=== PATIENT | female | born 1965 | race Caucasian/White ===

== ENCOUNTER 2017-04-07 03:49 | Emergency (ER) | payer OTHER ==
[2017-04-07 03:57] VITALS: O2SAT 95
[2017-04-07] MEDS ORDERED: NS 1,000 ML IV ONE (04:22)
[2017-04-07] MEDS ORDERED: HYDROmorphONE/DILAUDID 1 MG/ML SYR IVP ONE (04:28)
[2017-04-07] MEDS ORDERED: methylPREDNISolone SOD SUCC 125 MG/2 ML VIAL IVP ONE (04:29)
--- NOTE | 2017-04-07 04:32 | EDPHY ---
H & P Stated Complaint: UC flare up Time Seen by Provider: 04/07/17 04:21 HPI/ROS: HPI The patient presents with 1 day of left-sided lower quadrant abdominal pain which is achy in nature and constant and feels like her prior flares of ulcerative colitis. She has had 3 days of diarrhea which is more loose than usual. She says her stools are always bloody, appear more bloody over the last 1 day. She has not had a fever. She is followed by Dr. Lyles of Gastroenterology and has plans for a total colectomy per her report by Dr. Enamorado later this month. She says this feels like her usual flare, though is more mild. REVIEW OF SYSTEMS Constitutional: No fever, no chills. Eyes: No discharge. ENT: No sore throat. Cardiovascular: No chest pain, no palpitations. Respiratory: No cough, no shortness of breath. Gastrointestinal: Positive for abdominal pain Genitourinary: No hematuria. Musculoskeletal: No back pain. Skin: No rashes. Neurological: No headache. PMHx: Ulcerative colitis, pancreatitis Soc Hx: Housed PHYSICAL General Appearance: Alert, no distress Eyes: Pupils equal and round no pallor or injection ENT, Mouth: Mucous membranes moist Respiratory: There are no retractions, lungs are clear to auscultation Cardiovascular: Regular rate and rhythm Gastrointestinal: Abdomen is soft and tender in the LLQ, no masses, bowel sounds normal Neurological: A&O, moves all extremities Skin: Warm and dry, no rashes Musculoskeletal: Neck is supple non tender Extremities: symmetrical, full range of motion Psychiatric: Patient is oriented X 3, there is no agitation Source: Patient, Old records Exam Limitations: No limitations - Personal History LMP (Females 10-55): Hysterectomy Current Tetanus/Diphtheria Vaccine: Yes Current Tetanus Diphtheria and Acellular Pertussis (TDAP): Yes Tetanus Vaccine Date: ~ 3 YEARS AGO - Medical/Surgical History Hx Asthma: No Hx Chronic Respiratory Disease: No Hx Diabetes: No Hx Cardiac Disease: No Hx Renal Disease: No Hx Cirrhosis: No Hx Alcoholism: No Hx HIV/AIDS: No Hx Splenectomy or Spleen Trauma: No Other PMH: PMH: OVARIAN CYSTS, ULCERATIVE, rib fx, pneumoCOLITIS,HTN,HYPOTHYROID ,PANCREATITIS. PSH: HYST - Social History Smoking Status: Former smoker Constitutional: Initial Vital Signs Temperature (C) 36.6 C 07/19/17 03:55 Heart Rate 95 04/07/17 03:55 Respiratory Rate 18 04/07/17 03:55 Blood Pressure 116/81 H 04/07/17 03:55 O2 Sat (%) 95 04/07/17 03:55 O2 Delivery Mode Room Air Allergies/Adverse Reactions: nausea medications Allergy (Severe, Uncoded 03/24/16 06:40) Other-Enter Comments Home Medications: Medication Instructions Recorded Levothyroxine [Synthroid 75 mcg 75 mcg PO DAILY06 09/24/13 (*)] Lisinopril [Zestril 5 mg (*)] 5 mg PO DAILY 09/24/13 Estradiol [Vivelle-Dot 0.1MG (*)] 0.1 mg TD MO@08 03/04/16 oxyCODONE/APAP 5/325 [Percocet 1 - 2 tab PO Q4 PRN #30 tab 03/25/16 5/325 (*)] Medical Decision Making Differential Diagnosis: This is a 51-year-old female with history of ulcerative colitis who presents from home with 1 day of left lower quadrant abdominal pain associated with bloody diarrhea. Feels like her usual colitis flare. Differential diagnosis includes ulcerative colitis, diverticulitis, less likely ischemic colitis. Labs were relatively unremarkable in the emergency room. The patient received fluids, pain medication, Solu-Medrol as this is what usually helps her. She improved immediately. She will be discharged home. 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 - Data Points Laboratory Results: Laboratory Results 04/07/17 04:17 04/07/17 04:17 04/07/17 04/07/17 04:17 04:17 WBC 7.75 10^3/uL 10^3/uL (3.80-9.50) RBC 4.01 10^6/uL L 10^6/uL (4.18-5.33) Hgb 10.9 g/dL L g/dL (12.6-16.3) Hct 34.3 % L % (38.0-47.0) MCV 85.5 fL fL (81.5-99.8) MCH 27.2 pg L pg (27.9-34.1) MCHC 31.8 g/dL L g/dL (32.4-36.7) RDW 16.5 % H % (11.5-15.2) Plt Count 409 10^3/uL H 10^3/uL (150-400) MPV 10.0 fL fL (8.7-11.7) Neut % (Auto) 56.3 % % (39.3-74.2) Lymph % (Auto) 30.5 % % (15.0-45.0) [place] % (Auto) 9.0 % % (4.5-13.0) Eos % (Auto) 3.2 % % (0.6-7.6) Baso % (Auto) 0.9 % % (0.3-1.7) Nucleat RBC Rel Count 0.0 % % (0.0-0.2) Absolute Neuts (auto) 4.36 10^3/uL 10^3/uL (1.70-6.50) Absolute Lymphs (auto) 2.36 10^3/uL 10^3/uL (1.00-3.00) Absolute Monos (auto) 0.70 10^3/uL 10^3/uL (0.30-0.80) Absolute Eos (auto) 0.25 10^3/uL 10^3/uL (0.03-0.40) Absolute Basos (auto) 0.07 10^3/uL 10^3/uL (0.02-0.10) Absolute Nucleated RBC 0.00 10^3/uL 10^3/uL (0-0.01) Immature Gran % 0.1 % % (0.0-1.1) Immature Gran # 0.01 10^3/uL 10^3/uL (0.00-0.10) Sodium 142 mEq/L mEq/L (134-144) Potassium 4.7 mEq/L mEq/L (3.5-5.2) Chloride 111 mEq/L H mEq/L (97-110) Carbon Dioxide 21 mEq/l L mEq/l (22-31) Anion Gap 10 mEq/L mEq/L (8-16) BUN 26 mg/dL H mg/dL (7-23) Creatinine 0.8 mg/dL mg/dL (0.6-1.0) Estimated GFR > 60 Glucose 100 mg/dL mg/dL (70-100) Calcium 9.5 mg/dL mg/dL (8.5-10.4) Total Bilirubin 0.5 mg/dL mg/dL (0.1-1.4) Conjugated Bilirubin 0.4 mg/dL mg/dL (0.0-0.5) Unconjugated Bilirubin 0.1 mg/dL mg/dL (0.0-1.1) AST 28 IU/L IU/L (14-46) ALT 24 IU/L IU/L (9-52) Alkaline Phosphatase 58 IU/L IU/L (38-126) Total Protein 6.5 g/dL g/dL (6.3-8.2) Albumin 3.5 g/dL g/dL (3.5-5.0) Lipase 116.0 IU/L IU/L (23-300) Medications Given: Discontinued Medications Hydrocodone Bitart/Acetaminophen ([place] 5/325mg Prepack#6) 1 btl TAKEHOME EDNOW ONE Stop: 04/07/17 05:58 Last Admin: 04/07/17 06:02 Dose: 1 btl Hydromorphone HCl (Dilaudid) 0.5 mg IVP EDNOW ONE Stop: 04/07/17 04:29 Last Admin: 04/07/17 04:35 Dose: 0.5 mg Sodium Chloride (Ns) 1,000 mls @ 0 mls/hr IV ONCE ONE; Wide Open PRN Reason: Protocol Stop: 04/07/17 04:23 Last Admin: 04/07/17 04:34 Dose: 1,000 mls Methylprednisolone Sodium Succinate (Solu-Medrol) 125 mg IVP EDNOW ONE Stop: 04/07/17 04:30 Last Admin: 04/07/17 04:35 Dose: 125 mg Departure - Departure Disposition: Home, Routine, Self-Care Clinical Impression: Abdominal pain, left lower quadrant Ulcerative colitis Qualifiers: Ulcerative colitis location: unspecified ulcerative colitis location Digestive disease complication type: unspecified complication Qualified Code(s): K51.919 - Ulcerative colitis, unspecified with unspecified complications Condition: Good Instructions: Hydrocodone/Acetaminophen (By mouth), Ulcerative Colitis (ED) Additional Instructions: Please call your slitter creaser slotter helper today to arrange for follow-up. Return to the ER if your worse in any way. Referrals: Pramod Lyles MD [[facility] Primary Care Provider] - As per Instructions
[2017-04-07 04:35] LABS: % IMMATURE GRANULYOCYTES 0.1 % (0.0-1.1); ABSOLUTE IMMATURE GRANULOCYTES 0.01 10^3/uL (0.00-0.10); ADD DIFF? NO; ADD MORPH? NO; ADD SCAN? NO; ATYPICAL LYMPHOCYTE FLAG 10 (0-99); FRAGMENT RBC FLAG 30 (0-99); HEMATOCRIT 34.3 % (38.0-47.0); HEMOGLOBIN 10.9 g/dL (12.6-16.3); LEFT SHIFT FLG 0 (0-99); LIPEMIA HEMOLYSIS FLAG 80 (0-99); MEAN CELL HEMOGLOBIN 27.2 pg (27.9-34.1); MEAN CELL HEMOGLOBIN CONCENTR. 31.8 g/dL (32.4-36.7); MEAN CELL VOLUME 85.5 fL (81.5-99.8); PLATELET CLUMPS FLAG 10 (0-99); PLATELET COUNT 409 10^3/uL (150-400); RED BLOOD CELL COUNT 4.01 10^6/uL (4.18-5.33); RED CELL DISTRIBUTION WIDTH 16.5 % (11.5-15.2)
[2017-04-07 04:39] LABS: ALANINE AMINOTRANSFERASE 24 IU/L (9-52); ALBUMIN 3.5 g/dL (3.5-5.0); ALKALINE PHOSPHATASE 58 IU/L (38-126); ANION GAP 10 mEq/L (8-16); ASPARTATE AMINOTRANSFERASE 28 IU/L (14-46); BILIRUBIN,TOTAL 0.5 mg/dL (0.1-1.4); BILIRUBIN-CONJUGATED 0.4 mg/dL (0.0-0.5); BILIRUBIN-UNCONJUGATED 0.1 mg/dL (0.0-1.1); CALCIUM 9.5 mg/dL (8.5-10.4); CARBON DIOXIDE 21 mEq/l (22-31); CHLORIDE 111 mEq/L (97-110); CREATININE 0.8 mg/dL (0.6-1.0); GLOMERULAR FILTRATION RATE > 60; GLUCOSE 100 mg/dL (70-100); POTASSIUM 4.7 mEq/L (3.5-5.2); SODIUM 142 mEq/L (134-144); TOTAL PROTEIN 6.5 g/dL (6.3-8.2)
[2017-04-07 05:42] VITALS: BP 108/73; PULSE 93; RESP 12
[2017-04-07] MEDS ORDERED: HYDROCOD/APAP 5/325 PREPACK#6 BTL TAKEHOME ONE (05:57)
[2017-04-07 06:12] VITALS: TEMP 97.7
== END 2017-04-07 06:11 | disposition home or self-care (01) ==
DX: K51.919 Ulcerative colitis, unspecified with unspecified complications (principal); I10 Essential (primary) hypertension; Z87.891 Personal history of nicotine dependence; Z90.710 Acquired absence of both cervix and uterus
CPT/HCPCS: 96374; J1170

== ENCOUNTER 2017-05-17 14:19 | Emergency (ER) | payer OTHER ==
[2017-05-17] MEDS ORDERED: ONDANSETRON 4 MG/2 ML VIAL ONE (14:38)
--- NOTE | 2017-05-17 14:46 | EDPHY ---
H & P Stated Complaint: N/V after dosing self w/equine doxycyline to self tx poss UTI Time Seen by Provider: 05/17/17 14:44 HPI/ROS: CHIEF COMPLAINT: Nausea and vomiting after taking doxycycline HISTORY OF PRESENT ILLNESS: The patient presents to the ED with nausea and vomiting after taking doxycycline. The patient diagnosed herself with urinary tract infection earlier today. She took doxycycline for this condition. The patient developed nausea and vomiting. The patient reportedly had a colostomy approximately 2 weeks ago for ulcerative colitis with pre malignant cytology. The patient has been taking her regular medications as prescribed. She denies any complaints of cough, congestion or fever. The patient tells me that the doxycycline she took was a powder form which is typically prescribed for horses. She reports she took a tsp of a powder which was concentrated at a dose of 5 grams/tablespoon. REVIEW OF SYSTEMS: A comprehensive 10 point review of systems is otherwise negative aside from elements mentioned in the history of present illness. Source: Patient Exam Limitations: No limitations - Personal History LMP (Females 10-55): Post Menopausal Current Tetanus Diphtheria and Acellular Pertussis (TDAP): Yes Tetanus Vaccine Date: ~ 3 YEARS AGO - Medical/Surgical History Hx Asthma: No Hx Chronic Respiratory Disease: No Hx Diabetes: No Hx Cardiac Disease: No Hx Renal Disease: No Hx Cirrhosis: No Hx Alcoholism: No Hx HIV/AIDS: No Hx Splenectomy or Spleen Trauma: No Other PMH: PMH: OVARIAN CYSTS, ULCERATIVE, rib fx, pneumoCOLITIS,HTN,HYPOTHYROID ,PANCREATITIS. PSH: HYST, colostomy post colectomy 04/2017 - Social History Smoking Status: Former smoker - Physical Exam Exam: General Appearance: Alert, no distress Eyes: Pupils equal and round no pallor or injection ENT, Mouth: Mucous membranes moist Respiratory: There are no retractions, lungs are clear to auscultation Cardiovascular: Regular rate and rhythm Gastrointestinal: Abdomen is soft, colostomy appears patent with pink stoma, normal stool noted in colostomy bag, surgical incisions clean dry and intact Neurological: A&O, normal motor function, normal sensory exam, normal cranial nerves Skin: Warm and dry, no rashes Musculoskeletal: Neck is supple nontender Extremities: symmetrical, full range of motion Constitutional: Initial Vital Signs Temperature (C) 36.7 C 05/17/17 14:27 Heart Rate 107 H 05/17/17 14:27 Respiratory Rate 18 05/17/17 14:27 Blood Pressure 121/80 H 05/17/17 14:27 O2 Sat (%) 97 05/17/17 14:27 O2 Delivery Mode Room Air Allergies/Adverse Reactions: nausea medications Allergy (Mild, Uncoded 05/17/17 14:26) Other-Enter Comments Home Medications: Medication Instructions Recorded Lisinopril [Zestril 5 mg (*)] 5 mg PO DAILY 09/24/13 oxyCODONE/APAP 5/325 [Percocet 1 - 2 tab PO Q4 PRN #30 tab 03/25/16 5/325 (*)] Cephalexin [Keflex] 500 mg PO TID #15 cap 05/17/17 Medical Decision Making - Diagnostics EKG Interpretation: EKG: Complete interpretation has been separately recorded in the [facility] archive. Summary impression: Sinus tachycardia ED Course/Re-evaluation: Patient had an IV established. She received 1 mg of Ativan as she reportedly is intolerant to antinausea medications. The patient received 1 L of normal saline. The patient does have a history of thrombocytosis and has evidence of that condition today. Consultation was made with [facility] at 5:00 p.m. reviewing the consequences of a 2 gm ingestion of doxycycline. They recommend supportive care. Patient's EKG demonstrates no evidence of QT prolongation. The patient was observed in the emergency department for several hours. Her nausea and vomiting.. The patient's urine dipstick does suggest urinary tract infection. The patient will be given a prescription for Keflex for her UTI. She is discharged home with customary aftercare instructions and return precautions. Differential Diagnosis: Differential diagnosis considered includes vomiting, metabolic abnormality, dehydration, arrhythmia - Data Points Laboratory Results: Laboratory Results 05/17/17 14:50 05/17/17 14:50 05/17/17 05/17/17 05/17/17 16:42 14:50 14:50 WBC 8.18 10^3/uL 10^3/uL (3.80-9.50) RBC 4.06 10^6/uL L 10^6/uL (4.18-5.33) Hgb 11.0 g/dL L g/dL (12.6-16.3) Hct 34.2 % L % (38.0-47.0) MCV 84.2 fL fL (81.5-99.8) MCH 27.1 pg L pg (27.9-34.1) MCHC 32.2 g/dL L g/dL (32.4-36.7) RDW 15.6 % H % (11.5-15.2) Plt Count 873 10^3/uL H 10^3/uL (150-400) Platelet Estimate INCREASED H (ADEQ) Sodium 138 mEq/L mEq/L (134-144) Potassium 4.1 mEq/L mEq/L (3.5-5.2) Chloride 100 mEq/L mEq/L (97-110) Carbon Dioxide 24 mEq/l mEq/l (22-31) Anion Gap 14 mEq/L mEq/L (8-16) BUN 15 mg/dL mg/dL (7-23) Creatinine 0.8 mg/dL mg/dL (0.6-1.0) Estimated GFR > 60 Glucose 103 mg/dL H mg/dL (70-100) Calcium 10.1 mg/dL mg/dL (8.5-10.4) Urine Color YAYA Urine Appearance CLEAR Urine pH 6.0 (5.0-7.5) Ur Specific [place] 1.005 (1.002-1.030) Urine Protein NEGATIVE (NEGATIVE) Urine Ketones NEGATIVE (NEGATIVE) Urine Blood NEGATIVE (NEGATIVE) Urine Nitrate POSITIVE H (NEGATIVE) Urine Bilirubin NEGATIVE (NEGATIVE) Urine Urobilinogen NEGATIVE EU EU (0.2-1.0) Ur Leukocyte Esterase 2+ H (NEGATIVE) Urine RBC 1-3 /hpf /hpf (0-3) Urine WBC 1-3 /hpf /hpf (0-3) Ur Epithelial Cells TRACE /lpf /lpf (NONE-1+) Urine Bacteria TRACE /hpf H /hpf (NONE SEEN) Urine Mucus TRACE /lpf /lpf (NONE-1+) Urine Glucose NEGATIVE (NEGATIVE) Medications Given: Discontinued Medications Sodium Chloride (Ns) 1,000 mls @ 0 mls/hr IV EDNOW ONE; Wide Open PRN Reason: Protocol Stop: 05/17/17 16:33 Last Admin: 05/17/17 16:45 Dose: 1,000 mls Lorazepam (Ativan Injection) 1 mg IVP EDNOW ONE Stop: 05/17/17 16:33 Last Admin: 05/17/17 16:44 Dose: 1 mg Departure - Departure Disposition: Home, Routine, Self-Care Clinical Impression: Urinary tract infection, Accidental overdose Condition: Good Instructions: Urinary Tract Infection in Women (ED) Additional Instructions: 1. Keflex as directed for urinary tract infection. 2. Return to the ED for severe vomiting or other concerns. Referrals: [facility] [Other] - As per Instructions Prescriptions: Cephalexin [Keflex] 500 mg PO TID #15 cap
[2017-05-17 16:24] LABS: HEMATOCRIT 34.2 % (38.0-47.0); LIPEMIA HEMOLYSIS FLAG 80 (0-99); MEAN CELL HEMOGLOBIN 27.1 pg (27.9-34.1); MEAN CELL HEMOGLOBIN CONCENTR. 32.2 g/dL (32.4-36.7); MEAN CELL VOLUME 84.2 fL (81.5-99.8); PLATELET COUNT 873 10^3/uL (150-400); RED BLOOD CELL COUNT 4.06 10^6/uL (4.18-5.33); RED CELL DISTRIBUTION WIDTH 15.6 % (11.5-15.2)
[2017-05-17 16:25] LABS: PLATELET CLUMPS FLAG 0 (0-99)
[2017-05-17 16:28] LABS: ANION GAP 14 mEq/L (8-16); CALCIUM 10.1 mg/dL (8.5-10.4); CARBON DIOXIDE 24 mEq/l (22-31); CHLORIDE 100 mEq/L (97-110); CREATININE 0.8 mg/dL (0.6-1.0); GLOMERULAR FILTRATION RATE > 60; GLUCOSE 103 mg/dL (70-100); POTASSIUM 4.1 mEq/L (3.5-5.2); SODIUM 138 mEq/L (134-144)
[2017-05-17] MEDS ORDERED: LORazepam 2 MG/ML INJ IVP ONE (16:32)
[2017-05-17] MEDS ORDERED: NS 1,000 ML IV ONE (16:32)
[2017-05-17 16:49] LABS: PLATELET ESTIMATE INCREASED (ADEQ)
[2017-05-17 17:04] LABS: COLOR AMBER; LEUKOCYTE ESTERASE,URINE 2+ (NEGATIVE); NITRITE,URINE POSITIVE (NEGATIVE)
[2017-05-17 17:24] LABS: BACTERIA TRACE /hpf (NONE SEEN); MUCUS TRACE /lpf (NONE-1+)
--- NOTE | 2017-05-17 17:52 | CPEKG ---
Heart Rate: 99 RR Interval: 606 P-R Interval: 196 QRSD Interval: 88 QT Interval: 364 QTC Interval: 468 P [place]: 65 QRS [place]: 40 T Wave [place]: 46 EKG Severity - ABNORMAL ECG - EKG Impression: SINUS RHYTHM Electronically Signed By: Ryan Abdul 17-May-2017 19:51:40
[2017-05-17 18:27] VITALS: BP 144/91; PULSE 105; RESP 16; TEMP 98.4; O2SAT 92
== END 2017-05-17 18:25 | disposition home or self-care (01) ==
DX: N39.0 Urinary tract infection, site not specified (principal); T36.4X1A Poisoning by tetracyclines, accidental (unintentional), initial encounter; I10 Essential (primary) hypertension; B96.89 Other specified bacterial agents as the cause of diseases classified elsewhere; Z87.891 Personal history of nicotine dependence
CPT/HCPCS: 96374; J2060; J2405